=== PATIENT | male | born 1995 | race Caucasian/White ===

== ENCOUNTER 2023-09-11 16:54 | Emergency (ER) | payer OTHER, SELFPAY ==
--- NOTE | ~2023-09-11 | XR_ITS ---
XR shoulder LT min 2V DATE: 09/11/2023 17:50 INDICATION: Left shoulder pain TECHNIQUE: 4 views COMPARISON: None FINDINGS: No fracture, dislocation, periosteal reaction or bone destruction or abnormal soft tissue c alcification of the left shoulder. Thoracic dextroscoliosis. IMPRESSION: Negative right shoulder Thoracic dextroscoliosis Reviewed, dictated and finalized at location B.
--- NOTE | ~2023-09-11 | XR_ITS ---
XR chest 2V DATE: 09/11/2023 17:50 INDICATION: Syncope versus seizure. TECHNIQUE: 2 views COMPARISON: None FINDINGS: There is moderate thoracic dextroscoliosis. Normal heart size. No hilar or mediastinal enlargement. No pulmonary infiltrate or consolidation, ple ural effusion or pulmonary vascular congestion or pneumothorax is detected. IMPRESSION: No active cardiopulmonary disease Thoracic dextroscoliosis Reviewed, dictated and finalized at location B.
--- NOTE | ~2023-09-11 | CT_ITS ---
IMPRESSION: Negative EXAMINATION: CT brain wo con DATE: 09/11/2023 17:47 INDICATION: Seizure. Syncope. TECHNIQUE: Computed tomography (CT) of the head was performed without intravenous contrast. The mA wa s adjusted according to patient size. Iterative reconstruction technique was employed. Exam dose: 60 5.33 mGy-cm total exam DLP. COMPARISON: None FINDINGS: No intracranial mass lesion or hemorrhage or cerebrovascular accident, midline shift or mas s effect is detected. Normal ventricular size. Normal ramirez-white matter differentiation. No subdural or epidural hematoma is detected. The orbital contents are unremarkable. Included mastoid air cells and paranasal sinuses are normally developed and aerated. No fracture or bone destruction of the cranial vault is detected. IMPRESSION: Negative Reviewed, dictated and finalized at Location [facility]. Reviewed, dictated and finalized at location B.
--- NOTE | ~2023-09-11 | XR_ITS ---
XR elbow LT min 3V DATE: 09/11/2023 17:50 INDICATION: Left elbow pain TECHNIQUE: 3 views COMPARISON: None FINDINGS: There is a butterfly IV at the anterior very proximal forearm. No fracture or dislocation or joint effusion, periosteal reaction or bone destruction. IMPRESSION: No bony abnormality or joint effusion Reviewed, dictated and finalized at location B.
[2023-09-11 17:03] VITALS: BP 147/93; PULSE 97; RESP 20; TEMP 36.6; O2SAT 98
--- NOTE | 2023-09-11 17:05 | ED.SEIZURE ---
HPI - Seizure General Chief Complaint: Seizure <DIPIKA Fair Last Filed: 09/11/23 17:20> Stated Complaint: Seizure <DIPIKA Fair Last Filed: 09/11/23 17:20> Time Seen by Provider: 09/11/23 17:05 <DIPIKA Fair Last Filed: 09/11/23 17:20> Focused HPI: Patient is a 28 y/o male who presents to the ED with c/o possible seizure like activity. Patient reports he was at work today around 1 pm and talking to his co-worker when he suddenly fell to the ground. States the next thing he remember was waking up on the ground with his coworkers and EMS surrounding him. Coworker states he lost consciousness, fell to the floor and had some shaking activity on the ground. Stated he was out of it for 2 minutes. No furhter post ictal period. No incontinence. No tongue biting. Patient states he was otherwise in his normal state of health today. States he feels completely normal currently. Did sustain abrasion to face, L eyebrow, L elbow, c/o pain to L shoulder. Denies dizziness, lightheadedness, vision changes, CP, SOB, DELVALLE. Patient denies any previous hx of seizures or syncope. Brother has had 1 seizure before. No cardiac Hx. Tetanus UTD. GENERAL: Well-appearing, well-nourished, and in no acute distress. HEAD: Normocephalic, atraumatic. EYE: PERRL/EOMI, conuunctiva clear. CHEST: Clear to auscultation. ?No respiratory distress. HEART: Regular rate and rhythm.? NEURO: ?Alert and oriented x3. No pronator drift. Strength 5/5 in upper and lower ext bilaterally. Patient screened in triage and initial orders placed.? ?Additional care and disposition to be based upon?diagnostic testing and treatment. <DIPIKA Fair Last Filed: 09/11/23 17:20> Source: patient <DIPIKA Fair Last Filed: 09/11/23 17:20> Mode of arrival: ambulatory <DIPIKA Fair Last Filed: 09/11/23 17:20> Limitations: no limitations <DIPIKA Fair Last Filed: 09/11/23 17:20> Related Data Allergies/Adverse Reactions: Allergies Allergy/AdvReac Type Severity Reaction Status Date / Time No Known Allergies Allergy Verified 09/11/23 17:06 <DIPIKA Fair Last Filed: 09/11/23 17:20> Course Vital Signs Vital signs: Vital Signs Temperature 97.8 F 09/11/23 17:03 Pulse Rate 97 09/11/23 17:03 Respiratory Rate 20 09/11/23 17:03 Blood Pressure 147/93 H 09/11/23 17:03 Pulse Oximetry 98 09/11/23 17:03 Oxygen Delivery Room Air 09/11/23 17:03 Temperature 97.8 F 09/11/23 17:03 Pulse Rate 72 09/11/23 20:11 Respiratory Rate 13 09/11/23 20:11 Blood Pressure 138/87 09/11/23 20:11 Pulse Oximetry 98 09/11/23 20:11 Oxygen Delivery Room Air 09/11/23 17:03 <DIPIKA Fair Last Filed: 09/11/23 17:20> Vital Signs Temperature 97.8 F 09/11/23 17:03 Pulse Rate 97 09/11/23 17:03 Respiratory Rate 20 09/11/23 17:03 Blood Pressure 147/93 H 09/11/23 17:03 Pulse Oximetry 98 09/11/23 17:03 Oxygen Delivery Room Air 09/11/23 17:03 Temperature 97.8 F 09/11/23 17:03 Pulse Rate 72 09/11/23 20:11 Respiratory Rate 13 09/11/23 20:11 Blood Pressure 138/87 09/11/23 20:11 Pulse Oximetry 98 09/11/23 20:11 Oxygen Delivery Room Air 09/11/23 17:03 <Brandie Mcmanus MD - Last Filed: 09/12/23 03:11> MDM - Seizure MDM Narrative Medical decision making narrative: MSE by MARILU in triage. <DIPIKA Fair Last Filed: 09/11/23 17:20> MSE by MARILU in triage. Agree with documentation. Patient with brief LOC unclear if syncope vs seizure; EKG here shows normal sinus rhythm rate 72, NM 159, QRS 93, QTC 372, no ST elevations or depressions, no signs of ischemia or arrhythmia. On further discussion, patient tells me that he actually has had multiple prior similar this episodes that generally are triggered with a stressor, or he gets a feelin
--- NOTE | 2023-09-11 17:07 | ECG_ITS ---
SEE SCANNED COPY FOR CONFIRMED REPORT MTDD
[2023-09-11 17:41] LABS: Basophils Percent Auto 0.2 % (0.2-1.2); Eosinophils Absolute Auto 0.1 K/mm3 (0-0.3); Eosinophils Percent Auto 0.4 % (0-4.4); Hematocrit 44.6 % (42.0-52.0); Hemoglobin 15.7 g/dL (14.0-18.0); Immature Granulocyte Absolute 0.04 K/mm3 (0.00-0.031); Immature Granulocyte Percent A 0.3 % (0-0.5); Lymphocytes Absolute Auto 2.11 K/mm3 (0.9-3.2); Lymphocytes Percent Auto 14.9 % (18.3-44.2); Mean Corpuscular HGB Conc 35.2 g/dl (32-36); Mean Corpuscular Hemoglobin 30.7 pg (26-34); Mean Corpuscular Volume 87.1 fl (80-100); Mean Platelet Volume 9.9 fl (7.4-10.4); Monocytes Absolute Auto 0.8 K/mm3 (0.1-0.6); Monocytes Percent Auto 5.4 % (2.6-8.5); Neutrophils Absolute Auto 11.2 K/mm3 (1.3-6.7); Neutrophils Percent Auto 78.8 % (45.5-73.1); Platelet Count Result 272 k/mm3 (150-375); Red Blood Count 5.12 M/mm3 (4.6-6.20); Red Cell Distribution Width 12.4 % (11.5-14.5); White Blood Count 14.2 K/mm3 (4.5-10.0)
[2023-09-11 17:51] LABS: Lactic Acid Reflex 1.4 mmol/L (0.7-2.0)
[2023-09-11 17:51] LABS: Alanine Aminotransferase 52 U/L (6-50); Albumin Level 4.8 g/dL (3.5-5.1); Alkaline Phosphatase 62 U/L (38-126); Anion Gap 10 mmol/L (4-12); Aspartate Amino Transferase 33 U/L (17-59); Bilirubin,Total 0.7 mg/dL (0.2-1.3); Blood Urea Nitrogen 15 mg/dL (9-20); Calcium 9.7 mg/dL (8.4-10.2); Carbon Dioxide 26 mmol/L (22-30); Chloride 103 mmol/L (98-107); Estimated CRCL calculation 144 ml/min; Estimated Glomerular Filt Rate > 60; Glucose 97 mg/dL (65-110); Potassium 4.4 mmol/L (3.4-5.0); Sodium 139 mmol/L (137-145)
[2023-09-11 17:52] LABS: Prothrombin Time 13.7 Seconds (11.1-14.7)
[2023-09-11 17:53] LABS: Partial Thromboplastin Time 26.7 Seconds (22.3-36.8)
[2023-09-11 18:01] LABS: Ethanol < 10 mg/dL (<10)
[2023-09-11 18:02] LABS: Troponin I < 0.012 ng/mL (0.000-0.034)
[2023-09-11 18:14] LABS: Glucose Point of Care 93 mg/dl (65-105)
[2023-09-11 18:32] LABS: Appearance Urine Clear (Clear); Bilirubin Urine Negative (Negative); Blood Urine Negative (Negative); Color Urine Yellow (Yellow); Glucose Urine UA Negative (Negative); Ketones Urine Negative (Negative); Leukocyte Esterase Ur Negative LEU/UL (Negative); Nitrate Urine Negative (Negative); Protein Urine Negative (Negative); Specific Grav Ur 1.012 (1.001-1.035); Urobilinogen Urine 0.2 mg/dL (<2.0)
[2023-09-11 18:33] LABS: Add Urine Microscopic? NO
[2023-09-11 18:45] LABS: Amphetamine Screen Urine Negative (Negative); Barbiturate Screen Urine Negative (Negative); Benzodiazepines Screen Urine Negative (Negative); Cannabinoid Screen Urine Positive (Negative); Cocaine Screen Urine Negative (Negative); Methadone Screen Urine Negative (Negative); Opiate Screen Urine Negative (Negative); Phencyclidine Screen Urine Negative (Negative)
[2023-09-11 20:11] VITALS: BP 138/87; PULSE 72; RESP 13; O2SAT 98
== END 2023-09-11 20:12 | disposition home or self-care (01) ==
PROVIDERS: Physician Assistant; Emergency Provider Emergency Medicine
DX: R55 Syncope and collapse (principal); S00.212A Abrasion of left eyelid and periocular area, initial encounter; S50.312A Abrasion of left elbow, initial encounter; S49.92XA Unspecified injury of left shoulder and upper arm, initial encounter; M41.9 Scoliosis, unspecified; W18.39XA Other fall on same level, initial encounter
CPT/HCPCS: 36415; 70450; 71046; 73030; 73080; 80053; 80307; 81003; 82948; 83605; 83735; 84484; 85025; 85610; 85730; 93005; 99284